=== PATIENT | male | born 1995 | race Two or more races ===

== ENCOUNTER 2023-10-27 13:34 | Emergency (ER) | payer MEDICAID ==
[~2023-10-27] VITALS: Ht 180.3 cm; Wt 62.6 kg
[2023-10-27 13:56] VITALS: BP 121/72; TEMP 99; O2SAT 99
== END 2023-10-27 16:07 | disposition left against medical advice (07) ==
LOC: ER 13:57
DX: S51.852A Open bite of left forearm, initial encounter (principal); W54.0XXA Bitten by dog, initial encounter; Y93.89 Activity, other specified; Y92.89 Other specified places as the place of occurrence of the external cause; Y99.8 Other external cause status